=== PATIENT | male | born 1990 | race Caucasian/White ===

== ENCOUNTER 2020-07-24 13:12 | Outpatient (REF) | payer MEDICARE, MEDICAID, SELFPAY | END 2020-07-24 13:13 | disposition home or self-care (01) | LOC: HO.LAB 13:12 | PROVIDERS: Visit Provider Internal Medicine | DX: Z20.828 Contact with and (suspected) exposure to other viral communicable diseases (principal) | CPT/HCPCS: C9803; U0003 ==

== ENCOUNTER 2020-10-03 10:20 | Outpatient (REF) | payer MEDICARE, MEDICAID, SELFPAY | END 2020-10-03 10:21 | disposition home or self-care (01) | LOC: HO.LAB 10:20 | PROVIDERS: Visit Provider Internal Medicine | DX: Z20.822 Contact with and (suspected) exposure to COVID-19 (principal) | CPT/HCPCS: 36415; C9803; U0003 ==